=== PATIENT | male | born 1980 | race Caucasian/White ===

== ENCOUNTER 2023-03-18 10:51 | Emergency (ER) | payer OTHER ==
[~2023-03-18] VITALS: Ht 172.7 cm; Wt 113.0 kg
[2023-03-18 11:26] VITALS: O2SAT 100
[2023-03-18 13:46] LABS: HEMATOCRIT 45.7 % (42.0-52.0); HEMOGLOBIN 15.9 g/dL (14.0-18.0); MEAN CORPUSCULAR HEMOGLOBIN 32.3 pg (28.0-32.0); MEAN CORPUSCULAR HGB CONC 34.9 g/dL (31.0-37.0); MEAN CORPUSCULAR VOLUME 92.5 fL (80.0-94.0); PLATELET 297 x1000/uL (130-400); RED BLOOD CELL COUNT 4.94 mill/uL (4.7-6.1); RED CELL DISTRIBUTION WIDTH 12.8 % (11.6-14.6); WHITE BLOOD COUNT 4.4 x1000/uL (4.5-11.0)
[2023-03-18 13:53] LABS: CLARITY URINE CLEAR (CLEAR); COLOR URINE YELLOW (YELLOW); GLUCOSE URINE NEGATIVE (NEGATIVE); KETONES URINE NEGATIVE (NEGATIVE); LEUKOCYTE ESTERASE URINE NEGATIVE (NEGATIVE); NITRITE URINE NEGATIVE (NEGATIVE); OCCULT BLOOD URINE NEGATIVE (NEGATIVE); PH URINE 5.5 (4.5-8.0); PROTEIN URINE 1+ (NEGATIVE); SPECIFIC GRAVITY URINE 1.025 (1.005-1.030); UROBILINOGEN URINE 0.2 E.U./dL (0.2-1.0)
[2023-03-18 13:56] LABS: BACTERIA URINE NONE SEEN; SQUAMOUS EPITHELIAL CELL URINE NONE SEEN /lpf (RARE/1+); WBC URINE 0-2 /hpf (0-2); YEAST URINE NONE SEEN
[2023-03-18 14:01] LABS: ALANINE AMINOTRANSFERASE 109 IU/L (10-49); ALBUMIN 4.7 g/dL (3.2-4.8); ASPARTATE AMINOTRANSFERASE 48 IU/L (<34); BILIRUBIN TOTAL 0.9 mg/dL (0.1-1.0); CALCIUM 9.4 mg/dL (8.7-10.4); CARBON DIOXIDE 28 mEq/L (21-32); CHLORIDE 103 mEq/L (98-107); GLUCOSE 92 mg/dL (70-105); POTASSIUM 3.6 mEq/L (3.5-5.1); PROTEIN TOTAL 7.3 g/dL (6.0-8.3); SODIUM 140 mEq/L (136-145); UREA NITROGEN BLOOD 6 mg/dL (9-23)
[2023-03-18 14:27] LABS: MUCUS URINE 2+ /lpf (NONE/TRACE); RBC URINE 0-2 /hpf (0-2)
[2023-03-18 15:20] VITALS: BP 160/91; PULSE 85; RESP 18; TEMP 98.7
== END 2023-03-18 15:20 | disposition home or self-care (01) ==
LOC: ER 10:51
DX: G89.29 Other chronic pain (principal); R10.9 Unspecified abdominal pain; R74.8 Abnormal levels of other serum enzymes
CPT/HCPCS: 36415; 80053; 81003; 85027; 99283